=== PATIENT | male | born 1985 | race Caucasian/White ===

== ENCOUNTER 2023-01-15 14:58 | Outpatient (CLI) | payer BC, SELFPAY ==
[2023-01-15 16:47] LABS: Sperm Progressive Motility 90 % (31-34); Viscosity Semen Droplets; Volume Semen 2.6 mL (2-5)
[2023-01-15 16:48] LABS: Sperm Non-Progressive Motility 10 % (5-10)
[2023-01-15 16:53] LABS: White Blood Count Semen 0-4 /hpf
[2023-01-15 16:55] LABS: Epithelial Count Semen 0-4 /hpf
[2023-01-15 18:14] LABS: PH Semen 7.5 (7.0-8.0)
[2023-01-15 18:54] LABS: Side 1 73; Side 2 69
[2023-01-15 21:16] LABS: Pathology Referral Yes
== END 2023-01-15 14:59 | disposition home or self-care (01) ==
PROVIDERS: Visit Provider Obstetrics & Gynecology
DX: N46.9 Male infertility, unspecified (principal)
CPT/HCPCS: 80503; 89320

== ENCOUNTER 2023-02-16 11:25 | Emergency (ER) | payer BC, SELFPAY ==
[2023-02-16 11:52] VITALS: BP 114/67; PULSE 67; RESP 16; TEMP 37; O2SAT 100
--- NOTE | 2023-02-16 12:00 | CTR_ITS ---
PROCEDURE INFORMATION: Exam: CT Abdomen And Pelvis With Contrast Exam date and time: 02/16/2023 1:21 PM Age: 37 years old Clinical indication: Abdominal pain; Periumbilical; Prior surgery; Surgery type: Appy; Additional info: Concerns for an umbilical hernia TECHNIQUE: Imaging protocol: Computed tomography of the abdomen and pelvis with contrast. Radiation optimization: All CT scans at this facility use at least one of these dose optimization techniques: automated exposure control; mA and/or kV adjustment per patient size (includes targeted exams where dose is matched to clinical indication); or iterative reconstruction. Contrast material: OMNI 350; Contrast volume: 100 ml; Contrast route: INTRAVENOUS (IV); REPORTING DATA: Count of CT and Cardiac NM exams in prior 12 months: This patient has received 0 known CTs and 0 known cardiac nuclear medicine studies in the 12 months prior to the current study. COMPARISON: No relevant prior studies available. RADIATION DOSE METRICS: Total DLP (mGy-cm): 404.73 FINDINGS: Limitations: Low spatial resolution due to thick slices. Lungs: Lung bases are clear. Liver: The liver is normal. Gallbladder and bile ducts: The gallbladder is normal. There is no biliary dilation. Pancreas: The pancreas is unremarkable. Spleen: The spleen is unremarkable. Adrenal glands: The adrenal glands are unremarkable. Kidneys and ureters: The kidneys are unremarkable. No hydronephrosis or stones. No ureteral dilation. Stomach and bowel: The stomach is decompressed, preventing meaningful evaluation of wall thickness. The small bowel is nondilated. There is contrast in the cecum and proximal ascending colon. The remainder of the colon contains no contrast. There is no colonic dilation or evidence of inflammation. Appendix: The appendix is surgically absent. Intraperitoneal space: There is no free air or significant intraperitoneal free fluid. Vasculature: The abdominal aorta is normal. There is no aneurysm or dissection. The portal, splenic and superior mesenteric veins are patent. Lymph nodes: There is no lymphadenopathy in the retroperitoneum, mesentery, pelvis or inguinal regions. Urinary bladder: The urinary bladder is unremarkable. Reproductive: The prostate and seminal vesicles are unremarkable. Bones/joints: There is mild degenerative disease in the lumbar spine. The pelvis and hips are unremarkable. Soft tissues: There is a tiny fat containing supraumbilical ventral hernia. The hernia sac measures [address]/CT abdomen pelvis w con* [id number] IMPRESSION: Tiny fat containing supraumbilical ventral hernia.
--- NOTE | 2023-02-16 12:06 | W.ED.ABDPA2 ---
HPI - Abdominal Pain General: Chief Complaint: Abdominal Pain Stated Complaint: abd pains/hernia Time Seen by Provider: 02/16/23 11:50 History of Present Illness: 37-year-old male presents to emergency department chief complaint of having a palpable bulge located around his umbilicus that started on Sunday patient presented to his primary care doctor's office today that tried to reduce this area in which appear to be unsuccessful. Which she was sent to the ER for further assessment management patient does not recall any recent fevers or chills does endorse history of constipation reports no diarrhea nausea vomiting or other associate symptoms he reports there is a small large marble sized area appreciated to the umbilicus. Associated Symptoms: Reports constipation; Denies chills and fever(s) Review of Systems General: Reports: 10 or more systems reviewed and unremarkable except in HPI and below Const: Denies: fever(s), chills, fatigue or malaise Eyes: Denies: change in vision or blurry vision Card: Denies: chest pain or palpitations Resp: Denies: dyspnea or productive cough GI: Reports: abdominal pain and constipation : Denies: flank pain Musc: Denies: extremity pain or extremity swelling Skin/Breast: Denies: rash or pruritus Neuro: Denies: headache(s) Psych: Denies: anxiety or depression Lisandro/Lymph: Denies: easy bleeding All/Imm: Denies: urticaria, throat swelling or facial swelling Physical Exam Narrative: EXAM NARRATIVE: Patient appears nontoxic appears no acute distress Const: COMMON NORMALS: no acute distress, patient oriented x3 and healthy appearing HENMT: COMMON NORMALS: normocephalic and atraumatic HEAD & SCALP: normocephalic and atraumatic Eye: COMMON NORMALS: Equal, round and reactive pupils present and EOMs intact bilaterally PUPIL: Yes Equal, round and reactive pupils present Neck/C-Spine: COMMON NORMALS: full ROM, supple and no JVD Lymph: LYMPHATIC: no lymphadenopathy noted Chest: COMMONS NORMALS: normal inspection of the chest and normal palpation of entire chest wall Resp: COMMON NORMALS: normal respiratory effort, No retractions and clear to auscultation bilaterally EFFORT & INSPECTION: Yes able to speak in complete sentences and Yes symmetric chest movement AUSCULTATION: clear to auscultation bilaterally Cardio: COMMON NORMALS: no JVD, regular rate and regular rhythm RATE: regular rate RHYTHM: regular rhythm GI: OTHER: There appears to be a small palpable bulge noted to the umbilicus superiorly concerning for a possible hernia this is approximately 3 to 4 cm in diameter there is no inflammation erythema surrounding it or edema concerning for a probable umbilical hernia : COMMON NORMALS: Yes no CVA tenderness BLADDER/KIDNEY EXAM: Yes no CVA tenderness Back/Pelvis: COMMON NORMALS: no CVA tenderness Extremity: COMMON NORMALS: normal to inspection and full ROM Neuro: COMMON NORMALS: patient oriented x3, CN's II-XII intact bilaterally, moves all extremities and no focal motor deficits Psych: COMMON NORMALS: mental status grossly normal, Normal thought process present, cooperative and normal affect THOUGHT PROCESS: Normal thought process present Skin: COMMON NORMALS: no rashes or lesions noted GENERAL SKIN EXAM: no rashes or lesions noted Course Vital Signs: Vital signs: Vital Signs Temperature 98.6 F 02/16/23 11:52 Pulse Rate 60 02/16/23 14:26 Respiratory Rate 16 02/16/23 11:52 Blood Pressure 114/67 02/16/23 11:52 Pulse Oximetry 100 02/16/23 14:26 Oxygen Delivery Me thod Room Air 02/16/23 14:26 MDM - Abdominal Pain Medical Decision Making Due to patient's symptoms and condition lab work imaging will be obtained underlying concerns of a nonreducible umbilical hernia is prominent due to patient's symptoms have been going on for the last 4 days of high suspicions as not a strangulated or incarcerated we will be obtaining a CT abdomen pelvis with IV and oral contrast to further evaluate this. We will continue to follow Cast imaging reveals a nonincarcerated nonstrangulated umbilical hernia fat-containing renal lab work came back unremarkable the patient is stable for discharge home this time did advise further follow-up primary care in 3 to 5 days in which he was advised to return the interim if any of his symptoms persist or worse. Lab Data 02/16/23 12:16 02/16/23 12:16 Labs/Radiology: Radiology Impressions Abdomen/Pelvis CT 02/16/23 12:00 IMPRESSION: Tiny fat containing supraumbilical ventral hernia. Laboratory Results WBC 7.8 10^3/uL (4.0-10.0) 02/16/23 12:16 RBC 5.22 10^6/uL (4.1-5.3) 02/16/23 12:16 Hgb 15.5 g/dL (11.7-16.6) 02/16/23 12:16 Hct 46.6 % (42.0-52.0) 02/16/23 12:16 MCV 89.3 fl (80-94) 02/16/23 12:16 MCH 29.7 pg (28.0-34.0) 02/16/23 12:16 MCHC 33.3 g/dL (30.0-36.0) 02/16/23 12:16 RDW 12.5 % (12.1-15.1) 02/16/23 12:16 Plt Count 292 10^3/cmm (130-400) 02/16/23 12:16 MPV 9.2 fL (7.4-10.4) 02/16/23 12:16 Neut % (Auto) 60.7 % 02/16/23 12:16 Lymph % (Auto) 29.3 % 02/16/23 12:16 [place] % (Auto) 8.5 % 02/16/23 12:16 Eos % (Auto) 0.5 % 02/16/23 12:16 Baso % (Auto) 0.6 % 02/16/23 12:16 Neut # (Auto) 4.71 10^3/uL (1.8-7.7) 02/16/23 12:16 Lymph # (Auto) 2.3 10^3/uL (0.8-4.8) 02/16/23 12:16 [place] # (Auto) 0.7 10^3/uL (0.2-0.9) 02/16/23 12:16 Eos # (Auto) 0.0 10^3/uL (0.0-0.8) 02/16/23 12:16 Baso # (Auto) 0.1 10^3/uL (0.0-0.1) 02/16/23 12:16 Nucleated RBC % (auto) 0 % 02/16/23 12:16 Nucleated RBCs # 0.0 /100WBC 02/16/23 12:16 Sodium 141 mmol/L (136-145) 02/16/23 12:16 Potassium 4.0 mmol/L (3.5-5.1) 02/16/23 12:16 Chloride 103 mmol/L (98-107) 02/16/23 12:16 Carbon Dioxide 28 mmol/L (22-29) 02/16/23 12:16 Anion Gap 14.0 (5-19) 02/16/23 12:16 BUN 11 mg/dL (6-20) 02/16/23 12:16 Creatinine 0.8 mg/dL (0.7-1.2) 02/16/23 12:16 GFR Calculation 109.4 mL/min (90-130) 02/16/23 12:16 Glucose 98 mg/dL (65-115) 02/16/23 12:16 Calculated Osmolality 291 mOsm/kg (285-295) 02/16/23 12:16 Lactate 1.1 mmol/L (0.5-2.2) 02/16/23 12:16 Calcium 9.3 mg/dL (8.5-10.5) 02/16/23 12:16 Total Bilirubin 0.5 mg/dL (0.15-1.2) 02/16/23 12:16 AST 17 U/L (0-40) 02/16/23 12:16 ALT 12 U/L (0-41) 02/16/23 12:16 Alkaline Phosphatase 40 U/L (40-130) 02/16/23 12:16 C-Reactive Protein 3.0 mg/L (0.0-4.9) 02/16/23 12:16 Total Protein 7.5 g/dL (6.6-8.7) 02/16/23 12:16 Albumin 4.8 g/dL (3.5-5.2) 02/16/23 12:16 Globulin 2.7 g/dL (1.3-4.6) 02/16/23 12:16 Lipase 37 U/L (13-60) 02/16/23 12:16 Discharge Plan Discharge Patient Disposition: Home Clinical Impression: Umbilical hernia Qualifiers: Qualified Code(s): K42.9 - Umbilical hernia without obstruction or gangrene Condition: Stable Prescriptions: New ketorolac 10 mg tablet 10 mg PO Q8H PRN (Reason: pain) Qty: 14 0RF No Action Multivitamin Gummies 200 mcg Tablet,Chewable 1 tab PO DAILY Discharge Orders: Discharge ED (Routine); Ordered 02/16/23 Ordered By: Levar Rose Referrals: Jason Fowler MD [Primary Care Provider] - 1-3 days Discharge Diet: Advance as tolerated Discharge Activity: Increase activity as tolerated Patient Instructions: Umbilical Hernia (ED) Activity Restrictions/Additional Instructions: Please adhere to a soft food diet please further follow-up with primary care doctor in 3 to 5 days, please take medication prescribed please return the interim if any of your symptoms persist or worse. Today you have been found to have a small umbilical hernia that is only fat-containing which do not require any additional surgical management at this time. Coding Level of Care Code ED Implant Coordinator for Kim Swartz
[2023-02-16 12:24] LABS: Basophils # 0.1 10^3/uL (0.0-0.1); Basophils % 0.6 %; Eosinophils % 0.5 %; Hematocrit 46.6 % (42.0-52.0); Hemoglobin 15.5 g/dL (11.7-16.6); Lymphocytes # 2.3 10^3/uL (0.8-4.8); Lymphocytes % 29.3 %; Mean Corpuscular HGB Conc 33.3 g/dL (30.0-36.0); Mean Corpuscular Hemoglobin 29.7 pg (28.0-34.0); Mean Corpuscular Volume 89.3 fl (80-94); Mean Platelet Volume 9.2 fL (7.4-10.4); Monocytes # 0.7 10^3/uL (0.2-0.9); Monocytes % 8.5 %; Neutrophils # 4.71 10^3/uL (1.8-7.7); Neutrophils % 60.7 %; Nucleated Red Blood Cells % 0 %; Platelet Count 292 10^3/cmm (130-400); Red Blood Count 5.22 10^6/uL (4.1-5.3); Red Cell Distribution Width 12.5 % (12.1-15.1); White Blood Count 7.8 10^3/uL (4.0-10.0)
[2023-02-16 12:40] LABS: Lactate (Lactic Acid level) 1.1 mmol/L (0.5-2.2)
[2023-02-16 12:41] LABS: Alanine Aminotransferase 12 U/L (0-41); Albumin Level 4.8 g/dL (3.5-5.2); Alkaline Phosphatase 40 U/L (40-130); Aspartate Amino Transferase 17 U/L (0-40); Blood Urea Nitrogen 11 mg/dL (6-20); Calcium 9.3 mg/dL (8.5-10.5); Carbon Dioxide 28 mmol/L (22-29); Chloride 103 mmol/L (98-107); Globulin 2.7 g/dL (1.3-4.6); Glomerular Filtration Rate 109.4 mL/min (90-130); Glucose 98 mg/dL (65-115); Lipase 37 U/L (13-60); Osmolality Calculated 291 mOsm/kg (285-295); Sodium 141 mmol/L (136-145); Total Bilirubin 0.5 mg/dL (0.15-1.2); Total Protein 7.5 g/dL (6.6-8.7)
[2023-02-16] MEDS: iohexol 350 mg/mL 500 mL Btl (per mL) IV (13:30)
[2023-02-16 14:26] VITALS: PULSE 60; O2SAT 100
== END 2023-02-16 14:38 | disposition home or self-care (01) ==
PROVIDERS: Emergency Provider Emergency Medicine; PCP Family Medicine
DX: K42.9 Umbilical hernia without obstruction or gangrene (principal)
CPT/HCPCS: 74177; 80053; 83605; 83690; 85025; 86140; 99285; Q9967